=== PATIENT | male | born 1955 | race Caucasian/White ===

== ENCOUNTER 2024-11-13 10:15 | Outpatient (CLI) | payer OTHER ==
[2024-11-13] MEDS ORDERED: Magnevist 469MG/ML 20 ML VIAL ONE (11:30)
== END 2024-11-13 10:16 | disposition home or self-care (01) ==
LOC: CSHMRI 10:15
PROVIDERS: ATTEND Urology
DX: R97.20 Elevated prostate specific antigen [PSA] (principal); R93.89 Abnormal findings on diagnostic imaging of other specified body structures; N40.2 Nodular prostate without lower urinary tract symptoms
CPT/HCPCS: 36415; 72197; 82565